=== PATIENT | male | born 1965 | race Two or more races ===

== ENCOUNTER → 2024-11-04 11:59 | Outpatient (REF) | payer OTHER, SELFPAY | LOC: DHSLP 11:59 | PROVIDERS: ATTENDING PHYSICIAN Internal Medicine; FAMILY PHYSICIAN Family Medicine | DX: G47.30 Sleep apnea, unspecified (principal); R06.83 Snoring | CPT/HCPCS: 95800 ==

== ENCOUNTER → 2025-01-14 11:00 | Outpatient (REF) | payer OTHER, SELFPAY | LOC: DHSLP 11:00 | PROVIDERS: ATTENDING PHYSICIAN Internal Medicine; FAMILY PHYSICIAN Student in an Organized Health Care Education/Training Program | DX: G47.33 Obstructive sleep apnea (adult) (pediatric) (principal) | CPT/HCPCS: 95810 ==

== ENCOUNTER → 2025-07-14 16:01 | Outpatient (REF) | payer OTHER, SELFPAY | LOC: HWRAD 16:01 | PROVIDERS: ATTENDING PHYSICIAN Student in an Organized Health Care Education/Training Program; FAMILY PHYSICIAN Family Medicine | DX: M79.674 Pain in right toe(s) (principal) | CPT/HCPCS: 73630 ==